=== PATIENT | male | born 1985 | race Caucasian/White ===

== ENCOUNTER 2022-06-03 12:11 | Emergency (ER) | payer BC ==
[~2022-06-03] VITALS: Ht 180.3 cm; Wt 145.0 kg
[2022-06-03 12:31] VITALS: TEMP 98.6
[2022-06-03 15:58] VITALS: BP 149/95; PULSE 63
== END 2022-06-03 15:58 | disposition home or self-care (01) ==
LOC: COL.ER 12:11
DX: I82.401 Acute embolism and thrombosis of unspecified deep veins of right lower extremity (principal); Z91.19 Patient's noncompliance with other medical treatment and regimen; Z28.311 Partially vaccinated for COVID-19; Z79.01 Long term (current) use of anticoagulants